=== PATIENT | male | born 1970 | race Caucasian/White ===

== ENCOUNTER 2025-07-08 05:52 | Emergency (ER) | payer BC, SELFPAY ==
[2025-07-08] VITALS (11 sets, daily range): BP systolic 115–133; BP diastolic 66–80; PULSE 49–70; RESP 12–19; TEMP 36.6; O2SAT 95–98; BMI 34.2
--- NOTE | 2025-07-08 05:57 | XR_ITS ---
PROCEDURE INFORMATION: Exam: XR Chest Exam date and time: 07/08/2025 6:15 AM Age: 55 years old Clinical indication: Pain; Chest pressure; Additional info: Cp TECHNIQUE: Imaging protocol: Radiologic exam of the chest. Views: 1 view. COMPARISON: No relevant prior studies available. FINDINGS: Lungs: Opacity in the medial right base may represent atelectasis or pneumonia. Pleural spaces: Unremarkable. No pleural effusion. No pneumothorax. Heart/Mediastinum: Unremarkable. No cardiomegaly. Bones/joints: Unremarkable. IMPRESSION: Opacity in the medial right base may represent atelectasis or pneumonia.
--- NOTE | 2025-07-08 05:57 | ECG_ITS ---
APPROVED REPORT Exam: Resting ECG HR:54 bpm ECG Measurements Heart Rate 54 AXES MO 170 P 59 QRSd 96 QRS 34 QT 390 T 18 QTc 376 Conclusion SINUS BRADYCARDIA LOW QRS VOLTAGE IN PRECORDIAL LEADS [QRS DEFLECTION < 1.0 mV IN CHEST LEADS] BORDERLINE ECG UNCONFIRMED REPORT Electronically signed by : CON CHRISTOPHER, 07/10/2025 06:25:41
--- NOTE | 2025-07-08 06:04 | ED_ITS ---
Discharge Plan Disposition Patient Disposition: Home, Self-Care Prescriptions Prescriptions: New doxycycline hyclate 100 mg capsule 100 mg PO BID 7 Days Qty: 14 0RF Referrals Follow up/Referrals: Alec Macias [Primary Care Provider, Medical] - See instructions Activity Restrictions/Add. Instructions Additional Instructions/Restrictions: Your chest x-ray shows an area in the right lung that could represent pneumonia. I am prescribing an antibiotic. Take this as prescribed. You can take Tylenol and ibuprofen to help with your chest pain, which is likely from pulled muscle. If you develop any new or worsening symptoms, or if you become concerned for your health for any reason, return to the emergency department for evaluation Clinical Impressions Clinical Impression: Pneumonia, Chest pain Print Language Print Language: Frisian Discharge ED Provider: Ismael Yeboah General Adult HPI <Ismael Yeboah MD - Last Filed: 07/08/25 06:58> General Chief complaint: Chest Pain Stated complaint: Chest Pain Earlier Time Seen by Provider: 07/08/25 05:55 History of Present Illness HPI narrative: 55-year-old male without significant past medical history presents for chest pain. He reports that he had a little bit of soreness that he thought was from playing with his grandkids when he went to bed but he woke up with more central severe pain. Denies any significant cardiac history. No history of stroke or PE. Currently he is having no chest pain. Related Data Previous Rx's ?Medication ?Instructions ?Recorded doxycycline hyclate 100 mg capsule 100 mg PO BID 7 day s #14 caps 07/08/25 Allergies Allergy/AdvReac Type Severity Reaction Status Date / Time No Known Allergies Allergy Verified 07/08/25 06:05 [facility] <Ismael Yeboah MD - Last Filed: 07/08/25 06:58> [facility] Disclaimer: The information contained in this section may have been updated after the patient was seen, as this information can be updated by other users. Medical History (Updated 07/08/25 @ 07:44 by Joshua Montoya MD) Hyperlipidemia HTN (hypertension) Social History Smoking Status: Never smoker alcohol intake: never current occupational status: employed Travel in the last 8 weeks?: None Have you lived/traveled outside [place] in past 30 days?: No Contact w/someone who lives/traveled outside [place] past 30 days?: No Exposure to someone with infectious disease in past 14 days?: No Do you have a fever (greater than 100.4 F or 38 C)?: No Have you tested positive for COVID-19?: No Exposed to someone with COVID-19 in past 14 days?: No Do you have a sore throat?: No Do you have a cough?: No Do you have any weakness?: No Do you have any diarrhea?: No Are you experiencing any unusual bleeding?: No Do you have any muscle aches/pain?: No Do you have any abdominal pain?: No Are you experiencing loss of taste or smell?: No <Ismael Yeboah MD - Last Filed: 07/08/25 06:58> ROS Obtained: Yes All systems reviewed & no additional complaints except as documented Physical Exam <Ismael Yeboah MD - Last Filed: 07/08/25 06:58> General General appearance: alert and in no apparent distress Head Head exam: atraumatic and normocephalic Eye Eye exam: Present normal appearance, PERRL and EOMI ENT ENT exam: Present normal oropharynx and normal external ear exam Neck Neck exam: Present normal inspection and full ROM Chest Chest inspection: Present normal inspection and symmetric chest wall rise; Absent tenderness Respiratory Respiratory exam: Present normal lung sounds bilaterally; Absent respiratory distress Cardiovascular Cardiovascular exam: Present regular rate and normal rhythm Abdominal Exam Abdominal exam: Present soft; Absent distention, tenderness or guarding Extremities Exam Extremities exam: Present normal inspection; Absent edema or joint swelling Back Exam Back exam: Present normal inspection; Absent tenderness Neurological Exam Neurological exam: Present alert and oriented X3; Absent motor sensory deficit Psychiatric Psychiatric exam: Present normal affect and normal mood Skin Skin exam: Present warm, dry and normal color Lymphatic Lymphatic Findings: no adenopathy Medical Decision Making <Ismael Yeboah MD - Last Filed: 07/08/25 06:58> Medical Records Medical records reviewed: Yes I reviewed the patient's medical records. Screening: Per USPSTF and CDC recommendations, given the prevalence of disease in our region, it is our hospital?s policy to screen for HIV and viral Hepatitis for all patients aged 18 and over and those with ongoing risk factors. Stalin Inquiry Pt receiving controlled substance: No Stalin was queried for this patient: No Vital Signs: 07/08/25 06:05 07/08/25 06:11 07/08/25 06:31 Temperature 97.8 F Temperature Source Oral Pulse Rate 70 49 L Pulse Rate [Left] 70 Respiratory Rate 16 15 Blood Pressure 124/76 Blood Pressure [Right Arm] 133/75 Blood Pressure Mean 96 Blood Pressure Mean [Right Arm] 94 Blood Pressure Source [Right Arm] Automatic Cuff Blood Pressure Position [Right Arm] Sitting 02 Sat by Pulse Oximetry 97 98 Oxygen Delivery Method Room Air 07/08/25 07:00 07/08/25 07:30 07/08/25 08:00 Temperature Temperature Source Pulse Rate 49 L 50 L 49 L Pulse Rate [Left] Respiratory Rate 16 12 18 Blood Pressure 123/76 117/66 126/76 Blood Pressure [Right Arm] Blood Pressure Mean Blood Pressure Mean [Right Arm] Blood Pressure Source [Right Arm] Blood Pressure Position [Right Arm] 02 Sat by Pulse Oximetry 95 95 97 Oxygen Delivery Method Room Air Room Air Room Air 07/08/25 08:31 07/08/25 09:00 07/08/25 09:30 Temperature Temperature Source Pulse Rate 54 L 52 L 55 L Pulse Rate [Left] Respiratory Rate 13 17 19 Blood Pressure 119/78 115/79 127/80 Blood Pressure [Right Arm] Blood Pressure Mean Blood Pressure Mean [Right Arm] Blood Pressure Source [Right Arm] Blood Pressure Position [Right Arm] 02 Sat by Pulse Oximetry 98 96 97 Oxygen Delivery Method Room Air Room Air Room Air 07/08/25 10:01 Temperature Temperature Source Pulse Rate 52 L Pulse Rate [Left] Respiratory Rate 15 Blood Pressure 117/76 Blood Pressure [Right Arm] Blood Pressure Mean Blood Pressure Mean [Right Arm] Blood Pressure Source [Right Arm] Blood Pressure Position [Right Arm] 02 Sat by Pulse Oximetry 97 Oxygen Delivery Method Room Air Lab Data Lab results reviewed: Yes I reviewed the patient's lab results. Lab Results 07/08/25 06:16: WBC 8.9, RBC 4.70, Hgb 14.3, Hct 42.1, MCV 89.6, MCH 30.4, MCHC 34.0, RDW 12.5, Plt Count 243, MPV 10.6 H, Neut % (Auto) 52.2, Lymph % (Auto) 31.4, Anson % (Auto) 12.9 H, Eos % (Auto) 2.9, Baso % (Auto) 0.4, Neut # (Auto) 4.7, Lymph # (Auto) 2.8, Anson # (Auto) 1.2 H, Eos # (Auto) 0.3, Baso # (Auto) 0.0, Sodium 137, Potassium 4.6, Chloride 102, Carbon Dioxide 29, Anion Gap 10.6, BUN 17, Creatinine 1.30 H, Estimated Creat Clear 105, Estimated GFR 57 L, Est GFR ( Amer) 69, Glucose 99, Calcium 9.0, Total Bilirubin 1.1, AST 60 H, ALT 38, Alkaline Phosphatase 66, Troponin I 0.02, Total Protein 8.1, Albumin 4.4, Globulin 3.7 H, Albumin/Globulin Ratio 1.2, HCV Ab LUDMILA w/Rflx PCR Qn Negative, HIV Ag/Ab Combo Qual Negative 07/08/25 08:54: Troponin I < 0.01 07/08/25 06:16 07/08/25 06:16 Orders (Tests/Meds): ED MEDICATIONS Discontinued Medications Generic Name Dose Route Start Last Admin Trade Name Freq PRN Reason Stop Dose Admin Acetaminophen 1,000 mg 07/08/25 05:57 07/08/25 06:17 Acetaminophen 500mg Tab PO 07/08/25 05:58 1,000 mg ONCE ONE Administration Aspirin 324 mg 07/08/25 05:57 07/08/25 06:17 Aspirin 81mg Chewable Tablet PO 07/08/25 05:58 324 mg ONCE ONE Administration ORDERS Category Date Time Status CXR --portable [XR chest portable] Stat Exams 07/08/25 05:57 Completed CBC w/Auto Diff [Complete Blood Count Auto Diff] Stat Lab 07/08/25 06:16 Completed CMP [Comprehensive Metabolic Panel] Stat Lab 07/08/25 06:16 Completed HIV Combo Stat Lab 07/08/25 06:16 Completed Hepatitis C Ab Qual. W/ RFX Stat Lab 07/08/25 06:16 Completed Troponin I Q3H Lab 07/08/25 06:16 Completed Troponin I Q3H Lab 07/08/25 08:54 Completed ECG Data Tracing #1: I reviewed this ECG and interpreted as documented below: ECG initial impression date: 07/08/25 ECG initial impression time: 05:57 ECG normal with no acute: arrhythmias, ischemia, conduction abnormalities, chamber hypertrophy Normal Sinus Rhythm: Yes HEART Score History (anamnesis): Slightly suspicious ECG: Normal Age: 45-65 years Risk factors: 1-2 risk factors Troponin: </= normal limit HEART Score: 2 Medical Decision Narrative: 55-year-old male without significant past medical history presents for central chest pain that he awoke with, has been resolved prior to arrival. History was obtained via interactive discussion with patient, family, chart review. On arrival, patient is [afebrile, hemodynamically stable, satting appropriately, alert, oriented x4, GCS 15], moving all extremities spontaneously. Full physical exam performed and significant for no significant physical exam abnormality Differential includes but is not limited to ACS, musculoskeletal chest pain, GERD. Patient was given aspirin Tylenol for symptomatic management and correction of underlying abnormalities. Workup initiated including CBC CMP troponin EKG chest x-ray. On re-evaluation, patient [remains afebrile, HD stable.] Laboratory workup independently interpreted by me and significant for no significant laboratory derangement, negative initial troponin. Imaging independently interpreted by me and significant for clear lungs bilaterally without focal opacity. See radiology read for full review of final results. Repeat troponin was considered, but deemed unnecessary due to brief episode of pain, pain resolved prior to arrival. Care handed off to oncoming physician pending troponin. <Joshua Montoya MD - Last Filed: 07/08/25 10:22> Vital Signs: 07/08/25 06:05 07/08/25 06:11 07/08/25 06:31 Temperature 97.8 F Temperature Source Oral Pulse Rate 70 49 L Pulse Rate [Left] 70 Respiratory Rate 16 15 Blood Pressure 124/76 Blood Pressure [Right Arm] 133/75 Blood Pressure Mean 96 Blood Pressure Mean [Right Arm] 94 Blood Pressure Source [Right Arm] Automatic Cuff Blood Pressure Position [Right Arm] Sitting 02 Sat by Pulse Oximetry 97 98 Oxygen Delivery Method Room Air 07/08/25 07:00 07/08/25 07:30 07/08/25 08:00 Temperature Temperature Source Pulse Rate 49 L 50 L 49 L Pulse Rate [Left] Respiratory Rate 16 12 18 Blood Pressure 123/76 117/66 126/76 Blood Pressure [Right Arm] Blood Pressure Mean Blood Pressure Mean [Right Arm] Blood Pressure Source [Right Arm] Blood Pressure Position [Right Arm] 02 Sat by Pulse Oximetry 95 95 97 Oxygen Delivery Method Room Air Room Air Room Air 07/08/25 08:31 07/08/25 09:00 07/08/25 09:30 Temperature Temperature Source Pulse Rate 54 L 52 L 55 L Pulse Rate [Left] Respiratory Rate 13 17 19 Blood Pressure 119/78 115/79 127/80 Blood Pressure [Right Arm] Blood Pressure Mean Blood Pressure Mean [Right Arm] Blood Pressure Source [Right Arm] Blood Pressure Position [Right Arm] 02 Sat by Pulse Oximetry 98 96 97 Oxygen Delivery Method Room Air Room Air Room Air 07/08/25 10:01 Temperature Temperature Source Pulse Rate 52 L Pulse Rate [Left] Respiratory Rate 15 Blood Pressure 117/76 Blood Pressure [Right Arm] Blood Pressure Mean Blood Pressure Mean [Right Arm] Blood Pressure Source [Right Arm] Blood Pressure Position [Right Arm] 02 Sat by Pulse Oximetry 97 Oxygen Delivery Method Room Air Lab Data Lab Results 07/08/25 06:16: WBC 8.9, RBC 4.70, Hgb 14.3, Hct 42.1, MCV 89.6, MCH 30.4, MCHC 34.0, RDW 12.5, Plt Count 243, MPV 10.6 H, Neut % (Auto) 52.2, Lymph % (Auto) 31.4, Anson % (Auto) 12.9 H, Eos % (Auto) 2.9, Baso % (Auto) 0.4, Neut # (Auto) 4.7, Lymph # (Auto) 2.8, Anson # (Auto) 1.2 H, Eos # (Auto) 0.3, Baso # (Auto) 0.0, Sodium 137, Potassium 4.6, Chloride 102, Carbon Dioxide 29, Anion Gap 10.6, BUN 17, Creatinine 1.30 H, Estimated Creat Clear 105, Estimated GFR 57 L, Est GFR ( Amer) 69, Glucose 99, Calcium 9.0, Total Bilirubin 1.1, AST 60 H, ALT 38, Alkaline Phosphatase 66, Troponin I 0.02, Total Protein 8.1, Albumin 4.4, Globulin 3.7 H, Albumin/Globulin Ratio 1.2, HCV Ab LUDMILA w/Rflx PCR Qn Negative, HIV Ag/Ab Combo Qual Negative 07/08/25 08:54: Troponin I < 0.01 Orders (Tests/Meds): ED MEDICATIONS Discontinued Medications Generic Name Dose Route Start Last Admin Trade Name Freq PRN Reason Stop Dose Admin Acetaminophen 1,000 mg 07/08/25 05:57 07/08/25 06:17 Acetaminophen 500mg Tab PO 07/08/25 05:58 1,000 mg ONCE ONE Administration Aspirin 324 mg 07/08/25 05:57 07/08/25 06:17 Aspirin 81mg Chewable Tablet PO 07/08/25 05:58 324 mg ONCE ONE Administration ORDERS Category Date Time Status CXR --portable [XR chest portable] Stat Exams 07/08/25 05:57 Completed CBC w/Auto Diff [Complete Blood Count Auto Diff] Stat Lab 07/08/25 06:16 Completed CMP [Comprehensive Metabolic Panel] Stat Lab 07/08/25 06:16 Completed HIV Combo Stat Lab 07/08/25 06:16 Completed Hepatitis C Ab Qual. W/ RFX Stat Lab 07/08/25 06:16 Completed Troponin I Q3H Lab 07/08/25 06:16 Completed Troponin I Q3H Lab 07/08/25 08:54 Completed HEART Score HEART Score: 2 Medical Decision Narrative: 55-year-old male without significant past medical history presents for central chest pain that he awoke with, has been resolved prior to arrival. History was obtained via interactive discussion with patient, family, chart review. On arrival, patient is [afebrile, hemodynamically stable, satting appropriately, alert, oriented x4, GCS 15], moving all extremities spontaneously. Full physical exam performed and significant for no significant physical exam abnormality Differential includes but is not limited to ACS, musculoskeletal chest pain, GERD. Patient was given aspirin Tylenol for symptomatic management and correction of underlying abnormalities. Workup initiated including CBC CMP troponin EKG chest x-ray. On re-evaluation, patient [remains afebrile, HD stable.] Laboratory workup independently interpreted by me and significant for no significant laboratory derangement, negative initial troponin. Imaging independently interpreted by me and significant for clear lungs bilaterally without focal opacity. See radiology read for full review of final results. Repeat troponin was considered, but deemed unnecessary due to brief episode of pain, pain resolved prior to arrival. Care handed off to oncoming physician pending troponin. Joshua Montoya MD At the time my assumption of care, plan was to follow-up troponin Ultimately, patient's workup showed initial troponin of 0.02. Will obtain repeat troponin. Chest x-ray was interpreted by me personally. There is possible area of atelectasis versus consolidation in the right lower lobe that could represent pneumonia. Repeat troponin is negative at less than 0.01. Patient has not had recurrence of his symptoms while here in the emergency department. Will prescribe doxycycline 100 mg twice daily for possible pneumonia. I did encourage patient to follow with his primary care physician and return to the emergency department for any worsening or concerning symptoms. All questions were answered. He demonstrated understanding and was in agreement with this plan. He was then discharged from the emergency department in stable condition. Procedures <Ismael Yeboah MD - Last Filed: 07/08/25 06:58> Risk/Benefits of Procedure(s) Were Explained: Yes Critical Care <Ismael Yeboah MD - Last Filed: 07/08/25 06:58> Critical Care Time Critical Care Time: No
--- OUTSIDE RECORDS SUMMARY | 2025-07-08 06:16 | XMS_ITS | Data Portability ---
Author Organization [facility] JACKELINE Silva TAFT CLOSED Address [address] [place] [address] Care Team Providers Care Research Animal Facility Supervisor Name Role Phone DAMON ELIZABET Primary Care Provider [phone] Assessment No assessment recorded. Plan of Treatment Reminders Order Date Submit Date Provider Last Modified By Organization Details Last Modified Time Details Appointments None recorded. Lab urinalysis , dipstick, auto 2019 020 [facility], [address], [address], [place], [address], 0 19:53:33 urinalysis , dipstick, auto 2018 019 [facility], [address], [address], [place], [address], 9 14:42:28 Referral None recorded. Procedures None recorded. Surgeries None recorded. Imaging None recorded. Medication Orders sildenafil (pulmonary hypertensi on) 20 mg tablet 2018 019 INTERFACE [facility] [address] [place], [address], 9 14:42:36 Patient TargetsNo targets recorded. Patient Instructions Encounter Date Encounter Id Patient Instructions Last Modified By Organization Details Last Modified Time 07/20/2019 [id number] healthy together [facility] Not availabl e 07/20/2019 14:42:28 At this point th e patient likely has a variant of Peyronie's disease. Since it is not worsening he does not have pain and is able to have intercourse I do not recommend any invasive therapy. I have recommended use of vitamin E to see if this will reverse some of the defect. Plan for sildenafil for treatment of erectile dysfunction. [email or web address] Not available 07/23/2019 20:52:07 Reason for Referral None Reported. Results Created Date Observation Date Name Description Value Unit Range Abnormal Flag Note LastModifiedBy Organization Detail LastModifiedTime 02/02/20 20 02/02/2020 urina lysis , dipst ick, auto Unknown Analyte Yellow Not Available [facility] [address], [place], [address], 02/02/2020 12:18:24 02/02/20 20 02/02/2020 urina lysis , dipst ick, auto Unknown Analyte Clear Not Available [facility] [address], [place], [address], 02/02/2020 12:18:24 02/02/20 20 02/02/2020 urina lysis , dipst ick, auto Unknown Analyte 1.020 Not Available [facility] [address], [place], [address], 02/02/2020 12:18:24 02/02/20 20 02/02/2020 urina lysis , dipst ick, auto Unknown Analyte 1.003 - 1.035 Not Available [facility] [address] [place] [address] [address], [place], [address], 02/02/2020 12:18:24 02/02/20 20 02/02/2020 urina lysis , dipst ick, auto Unknown Analyte 6.0 Not Available [facility] [address], [address], 02/02/2020 12:18:24 02/02/20 20 02/02/2020 urina lysis , dipst ick, auto Unknown Analyte 5.0 - 8.0 Not Available [facility] [address], [place], [address], 02/02/2020 12:18:24 02/02/20 20 02/02/2020 urina lysis , dipst ick, auto Unknown Analyte Negati ve Not Available [facility] [address] [facility] [address], [place], [address], 02/02/2020 12:18:24 02/02/20 20 02/02/2020 urina lysis , dipst ick, auto Unknown Analyte Negati ve Not Available [facility] [address] [facility] [address], [place], [address], 02/02/2020 12:18:24 02/02/20 20 02/02/2020 urina lysis , dipst ick, auto Unknown Analyte Negati ve Not Available [facility] [address] [place] [address] [address], [place], [address], 02/02/2020 12:18:24 02/02/20 20 02/02/2020 urina lysis , dipst ick, auto Unknown Analyte Negati ve Not Available [facility] [address] [facility] [address], [place], [address], 02/02/2020 12:18:24 02/02/20 20 02/02/2020 urina lysis , dipst ick, auto Unknown Analyte Negtiv e Not Available [facility] [address] [facility] [address], [place], [address], 02/02/2020 12:18:24 02/02/20 20 02/02/2020 urina lysis , dipst ick, auto Unknown Analyte Negati ve - Trace Not Available [facility] [address], [place], [address], 02/02/2020 12:18:24 02/02/20 20 02/02/2020 urina lysis , dipst ick, auto Unknown Analyte Normal Not Available [facility] [address], [place], [address], 02/02/2020 12:18:24 02/02/20 20 02/02/2020 urina lysis , dipst ick, auto Unknown Analyte Normal Not Available [facility] [address], [place], [address], 02/02/2020 12:18:24 02/02/20 20 02/02/2020 urina lysis , dipst ick, auto Unknown Analyte Negati ve Not Available [facility] [address], [place], [address], 02/02/2020 12:18:24 02/02/20 20 02/02/2020 urina lysis , dipst ick, auto Unknown Analyte Negati ve Not Available [facility] [address], [place], [address], 02/02/2020 12:18:24 02/02/20 20 02/02/2020 urina lysis , dipst ick, auto Unknown Analyte Normal Not Available [facility] [address], [place], [address], 02/02/2020 12:18:24 02/02/20 20 02/02/2020 urina lysis , dipst ick, auto Unknown Analyte Normal - 1mg/dl Not Available [facility] [address], [place], [address], 02/02/2020 12:18:24 02/02/20 20 02/02/2020 urina lysis , dipst ick, auto Unknown Analyte Negati ve Not Available [facility] [address], [place], [address], 02/02/2020 12:18:24 02/02/20 20 02/02/2020 urina lysis , dipst ick, auto Unknown Analyte Negati ve Not Available [facility] [address], [place], [address], 02/02/2020 12:18:24 02/02/20 20 02/02/2020 urina lysis , dipst ick, auto Unknown Analyte Negati ve Not Available [facility] [address], [place], [address], 02/02/2020 12:18:24 02/02/20 20 02/02/2020 urina lysis , dipst ick, auto Unknown Analyte Negati ve Not Available [facility] [address], [place], [address], 02/02/2020 12:18:24 02/02/20 20 02/02/2020 urina lysis , dipst ick, auto Unknown Analyte Clean Catch Not Available [facility] [address], [place], [address], 02/02/2020 12:18:24 02/02/20 20 02/02/2020 urina lysis , dipst ick, auto Unknown Analyte Automa jennifer Not Available [facility] [address], [place], [address], 02/02/2020 12:18:24 07/20/20 19 07/20/2019 urina lysis , dipst ick, auto Unknown Analyte Yellow Not Available [facility] [address], [place], [address], 07/20/2019 14:33:32 07/20/20 19 07/20/2019 urina lysis , dipst ick, auto Unknown Analyte Clear Not Available [facility] [address], [place], [address], 07/20/2019 14:33:32 07/20/20 19 07/20/2019 urina lysis , dipst ick, auto Unknown Analyte 1.005 Not Available [facility] [address], [place], [address], 07/20/2019 14:33:32 07/20/20 19 07/20/2019 urina lysis , dipst ick, auto Unknown Analyte 1.003 - 1.035 Not Available [facility] [address], [place], [address], 07/20/2019 14:33:32 07/20/20 19 07/20/2019 urina lysis , dipst ick, auto Unknown Analyte 8.0 Not Available [facility] [address], [place], [address], 07/20/2019 14:33:32 07/20/2007/20/2019 urina lysis , dipst ick, auto Unknown Analyte 5.0 - 8.0 Not Available [facility] [address] [facility] [address], [place], [address], 07/20/2019 14:33:32 07/20/2007/20/2019 urina lysis , dipst ick, auto Unknown Analyte Negati ve Not Available [facility] [address], [place], [address], 07/20/2019 14:33:32 07/20/2007/20/2019 urina lysis , dipst ick, auto Unknown Analyte Negati ve Not Available [facility] [address], [place], [address], 07/20/2019 14:33:32 07/20/2007/20/2019 urina lysis , dipst ick, auto Unknown Analyte Negati ve Not Available [facility] [address], [place], [address], 07/20/2019 14:33:32 07/20/2007/20/2019 urina lysis , dipst ick, auto Unknown Analyte Negati ve Not Available [facility] [address], [place], [address], 07/20/2019 14:33:32 07/20/20 19 07/20/2019 urina lysis , dipst ick, auto Unknown Analyte Negtiv e Not Available [facility] [address], [place], [address], 07/20/2019 14:33:32 07/20/20 19 07/20/2019 urina lysis , dipst ick, auto Unknown Analyte Negati ve - Trace Not Available [facility] [address], [place], [address], 07/20/2019 14:33:32 07/20/20 19 07/20/2019 urina lysis , dipst ick, auto Unknown Analyte Normal Not Available [facility] [address], [place], [address], 07/20/2019 14:33:32 07/20/20 19 07/20/2019 urina lysis , dipst ick, auto Unknown Analyte Normal Not Available [facility] [address], [place], [address], 07/20/2019 14:33:32 07/20/20 19 07/20/2019 urina lysis , dipst ick, auto Unknown Analyte Negati ve Not Available [facility] [address], [place], [address], 07/20/2019 14:33:32 07/20/20 19 07/20/2019 urina lysis , dipst ick, auto Unknown Analyte Negati ve Not Available [facility] [address], [place], [address], 07/20/2019 14:33:32 07/20/20 19 07/20/2019 urina lysis , dipst ick, auto Unknown Analyte Normal Not Available [facility] [address], [place], [address], 07/20/2019 14:33:32 07/20/20 19 07/20/2019 urina lysis , dipst ick, auto Unknown Analyte Normal - 1mg/dl Not Available [facility] [address], [place], [address], 07/20/2019 14:33:32 07/20/2007/20/2019 urina lysis , dipst ick, auto Unknown Analyte Negati ve Not Available [facility] [address], [place], [address], 07/20/2019 14:33:32 07/20/20 19 07/20/2019 urina lysis , dipst ick, auto Unknown Analyte Negati ve Not Available [facility] [address], [place], [address], 07/20/2019 14:33:32 07/20/20 19 07/20/2019 urina lysis , dipst ick, auto Unknown Analyte Negati ve Not Available [facility] [address], [place], [address], 07/20/2019 14:33:32 07/20/20 19 07/20/2019 urina lysis , dipst ick, auto Unknown Analyte Negati ve Not Available [facility] [address], [place], [address], 07/20/2019 14:33:32 07/20/20 19 07/20/2019 urina lysis , dipst ick, auto Unknown Analyte Clean Catch Not Available [facility] [address], [place], [address], 07/20/2019 14:33:32 07/20/20 19 07/20/2019 urina lysis , dipst ick, auto Unknown Analyte Automa jennifer Not Available [facility] [address], [place], [address], 07/20/2019 14:33:32 Result Notes None recorded. 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 Procedures Surgical History Date Name Laterality Status Provider Name and Address Organization Details Recorded Time Hernia Repair completed Murelene Flako [facility] 07/20/2019 14:32:06 Hernia Repair completed Murelene Flako [facility] 07/20/2019 14:32:14 Imaging Results None recorded. Procedure Notes None recorded. Medical Equipment None Reported. Allergies No known drug allergies Medications Name Sig Start Date Stop Date Status Note LastModified by Organization Details LastModified Time promethazin e-DM 6.25 mg-15 mg/5 mL oral syrup 07/20 completed Not Available Not Available Not Available atorvastati n 20 mg tablet active Not Available Not Available Not Available prednisone 20 mg tablet 07/20 completed Not Available Not Available Not Available hydrochloro thiazide 25 mg tablet active Not Available Not Available No t Available polyethylen e glycol 3350 17 gram/dose oral powder 07/20 completed Not Available Not Available Not Available levofloxaci n 500 mg tablet 07/20 completed Not Available Not Available Not Available cefdinir 300 mg capsule 07/20 completed Not Available Not Available Not Available sildenafil (pulmonary hypertensio n) 20 mg tablet TAKE 2 TABLETS BY MOUTH NEEDED DIRECTED 2020 active Not Available Not Available Not Avai lable Vitals Date Recorded Body height Body mass index (BMI) Body weight Provider Name and Address Organization Details Last Updated DateTime 02/02/2020 182.88 cm 33.9 kg/m2 565263.09 g Deseriee Madison [facility] 02/02/2020 12:17:52 Date Recorded Body height Body mass index (BMI) Body weight Heart rate Systolic And Diastolic Provider Name and Address Organization Details Last Updated DateTime 07/20/2019 182.88 cm 33.9 kg/m2 601035.0 9 g 66 /min 131/85 mm[Hg] Bessie Arriola [facility] 07/20/2019 14:30:26 Social History Question Answer Notes LastModified by Paddle8 Details LastModified Time Tobacco Smoking Status Never Smoker Bessie Arriola [facility] 07/20/2019 14:31:31 How Much Tobacco Do You Chew? None Information not available 07/20/2019 Marital Status [facility] Informatio n not available 07/20/2019 What Was The Date Of Your Most Recent Tobacco Screening? 07/20/2019 Information not available 07/20/2019 Sex: Unknown Functional Status Question Answer Note LastModified by Paddle8 Details LastModified Time What is your level of alcohol consumption? Occasional Information not available 07/20/2019 Do you or have you ever used e-cigarettes or vape? Never used electronic cigarettes Information not available 07/20/2019 Mental Status None recorded. Family History Relationship Description Onset Age of this Age Resolved Age Notes LastModified by Organization Details LastModified Time Unspecified Relation Family history of malignant neoplasm Not available 2018 14:31:14 Unspecified Relation Kidney stone Not available 03/2019 14:31:19 Medical History Condition Response Hernia Y High Cholesterol Y Hypertension Y Past Encounters Encounter ID Performer Location Encounter Start Date Encounter Closed Date Diagnosis/Indication Diagnosis SNOMED-CT Code Diagnosis ICD10 Code Diagnosis IMO Codes Diagnosis Note [id number] PAULINA PICKERING JR, MD [facility] [address] [place] [address] 07/20/2019 13:48:19 07/20/2019 14:39:11 Induration penis plastica 8066887 N48.6 Primary er ectile dysfunction 812059993 N52.9 [id number] PAULINA PICKERING JR, MD [facility] [address] [place] [address] 02/02/2020 10:58:10 02/02/2020 11:19:46 Induration penis plastica 2000001 N48.6 Primary er ectile dysfunction 769914534 N52.9 Health Concerns Section Related Observation LastModified by Organization Detai ls LastModified Time None Recorded Concern Status LastModified by Organization Details LastModified Time None Recorded Advance Directives Directive None Recorded Payers Insurance Date Sequence Insurance Name Policy Number Policy Nowak Covered Member ID Nowak Member ID Guarantor Name 02/06/2020 1 [employer] (POS) Joce Shell Hernandez [id number] Joce Hernandez Notes Date Note Type Note Provider Name and Address Organization Details Recorded Time 07/20/2019 text/html Patient is in today for evaluation of abnormal appearing erection. He is a pleasant 49-year-old gentleman who is noticed over the past 10-12 months KUB in appearance to one side of his erection. He does not have any curvature with erection. He is able to have intercourse. This area has been stable. He denies pain with erection. He has had relative erectile dysfunction over the last few years and occasionally uses sildenafil. His erection is not as firm as it used to be over the past few years. No ejaculatory dysfunction. No lower urinary tract symptoms. PAULINA PICKERING JR, MD [address] [place], [address], [facility] 07/23/2019 20:52:25 02/02/2020 text/html Patient is in today for follow-up of erectile dysfunction and slight penile curvature with erection. He has been using vitamin E and sildenafil with success. He feels like his curve is slightly less and sildenafil definitely helps the rigidity of his erections. No complaints today. PAULINA PICKERING JR, MD [address] [place], [address], [facility] 02/05/2020 19:53:52
--- OUTSIDE RECORDS SUMMARY | 2025-07-08 06:16 | XMS_ITS | Clinical Summary ---
Author Organization [facility] Address [address] [place] [address] Care Team Providers Care Refrigeration Insulator Name Role Phone Alec Macias MD Primary Care Provider [phone] Allergies No known active allergies Medications lisinopril-hydro chlorothiazide (PRINZIDE,ZESTOR ETIC) 20-25 MG per tablet Take 1 tablet by mouth Daily. 03/28/2023 Active metoprolol tartrate (LOPRESSOR) 50 MG tablet Take 1 tablet by mouth Daily. 03/28/2023 Active montelukast (SINGULAIR) 10 MG tablet Take 1 tablet by mouth Daily. 03/15/2023 Active atorvastatin (LIPITOR) 20 MG tablet Take 1 tablet by mouth Daily. Active Active Problems Problem Noted Date Diagnosed Date KENNY (obstructive sleep apnea) 05/21/2023 Assessment & Plan (05/21/2023 2:48 PM EDT): Baseline AHI is 10. This is mild sleep apnea. He is on CPAP therapy. Download is reviewed with good control and good compliance. He is benefiting from PAP therapy and we plan to continue PAP therapy. Prescription for CPAP supplies to the DME of his choice. Follow-up in the sleep clinic in 1 year or sooner for any KENNY or PAP concerns. Family History Medical History Relation Name Comments Hypertension Father Hypertension Mother Relation Name Status Comments Father Alive Mother Alive Social History Tobacco Use Types Packs/Day Years Used Date Smoking Tobacco: Never Passive Smoke Exposure: Never Smokeless Tobacco: Never Alcohol Use Standard Drinks/Week Comments Not Currently 0 (1 standard drink = 0.6 oz pur e alcohol) Abuse Screen Answer Date Recorded Unsafe at Home or Work/School Not on file Feels Threatened by Someone? Not on file 08/2023 Does Anyone Keep You from Co ntacting Others or Doint Things Outside the Home? Not on file 06/24/2023 Physical Sign of Abuse Present Not on file 1 Housing Stability Answer Date Recorded Current Living Arrangements Not on file 06/13 Potentially Unsafe Housing Conditions Not on emir e 06/24/2023 Family and Community Support Answer Bharath e Recorded Help with Day-to-Day Activities Not on file 06/24/2023 Lonely or Isolated Not on file 06/24/2023 Employment Answer Date Recorded Do you want help finding or keeping work or a emilia b? Not on file 06/24/2023 Disabilities Answer Date Recorded Concentrating, Remembering, or Making Decisions Difficulty Not on file 06/24/2023 Doing Errands Independently Difficulty Not on fi le 06/24/2023 Education Answer Date Recorded Help with school or training? Not on file Preferred Language Not on file 06/24/2023 Sex and Gender Information Value Date Recorded Sex Assigned at Not on file Legal Sex Male 12:36 PM EST Gender Identity Not on file Sexual Orientation Not on file Last Filed Vital Signs Vital Sign Reading Time Taken Comments Blood Pressure 122/76 05/21/2023 1:34 PM EDT Pulse 70 05/21/2023 1:34 PM EDT Temperature - - Respiratory Rate - - Oxygen Saturation 96% 05/21/2023 1:34 PM EDT Inhaled Oxygen Concentration - - Weight 122 kg (268 lb) 05/21/2023 1:34 PM EDT Height 182.9 cm (6') 05/21/2023 1:34 PM EDT Body Mass Index 36.35 05/21/2023 1:34 PM EDT Plan of Treatment Health Maintenance Due Date Last Done Comments TDAP/TD VACCINES (1 - Tdap) 1987 COLOGUARD 2013 COLON CANCER SCREENING 5 YEA R SIGMOIDOSCOPY 2013 COLONOSCOPY [address] SCREENING 2013 [address] COLONOGRAPHY 2013 FECAL OCCULT BLOOD TEST 2013 FIT Testing (1 year) 2013 Pneumococcal Vaccine 50+ (1 of 1 - PCV) 2018 ZOSTER VACCINE (1 of 2) 2018 ANNUAL PHYSICAL 05/21/2023 HEPATITIS C SCREENING 05/21/2023 INFLUENZA VACCINE 04/13/2025 06/23/2023, , 07/08/2021 Insurance Care Teams Refrigeration Insulator Relationship Specialty Start Date End Date Alec Macias MD [address] [place] [address] [place] [address] PCP - General Family Medicine 05/21/23
[2025-07-08] MEDS: ACETAMINOPHEN 500MG TAB 1000 MG PO (06:17)
[2025-07-08] MEDS: ASPIRIN 81MG CHEWABLE TABLET 324 MG PO (06:17)
[2025-07-08 06:41] LABS: Hematocrit 42.1 % (42.0-52.0); Hemoglobin 14.3 g/dL (14.1-18.0); Immature Granulocytes % 0.2 %; Mean Corpuscular HGB Conc 34.0 g/dL (31.8-35.4); Mean Corpuscular Hemoglobin 30.4 pg (27.0-31.2); Mean Corpuscular Volume 89.6 fl (80-94); Nucleated Red Blood Cells % 0 %; Platelet Count 243 K/mm3 (142-424); Red Blood Count 4.70 M/mm3 (4.60-6.20); Red Cell Distribution Width-SD 41.0 fL; White Blood Count 8.9 K/mm3 (4.8-10.8)
[2025-07-08 06:47] LABS: Albumin Level 4.4 g/dl (3.5-5.0); Chloride 102 mmol/L (98-107); Potassium 4.6 mmoL/L (3.5-5.1); Sodium 137 mmol/L (136-145)
[2025-07-08 06:49] LABS: Blood Urea Nitrogen 17 mg/dl (9-20); Creatinine Clearance Estimated 105 mL/min (50-200); Creatinine,Serum 1.30 mg/dl (0.66-1.25); Estimated Glomerular Filt Rate 57 ml/min (>60); GFR (African American) 69 ML/MIN (>60)
[2025-07-08 06:50] LABS: Alanine Aminotransferase 38 U/L (12-78); Albumin/Globulin Ratio 1.2 (1.1-1.8); Alkaline Phosphatase 66 U/L (38-126); Anion Gap 10.6 mEq/L (5-15); Aspartate Amino Transferase 60 U/L (17-59); Bilirubin,Total 1.1 mg/dl (0.2-1.3); Calcium 9.0 mg/dl (8.4-10.2); Carbon Dioxide 29 mmol/L (22.0-30.0); Globulin 3.7 g/dL (1.3-3.2); Glucose 99 mg/dl (74-100); Total Protein,Serum 8.1 g/dl (6.3-8.2)
[2025-07-08 07:01] LABS: Troponin I 0.02 ng/ml (0.00-0.034)
[2025-07-08 07:39] LABS: Hepatitis C Ab Qual. W/ RFX NEGATIVE (Negative)
--- NOTE | 2025-07-08 10:00 | PC.NURSE ---
this rn spoke to lab about time frame on second trop they report 5 mins
[2025-07-08 10:08] LABS: Troponin I < 0.01 ng/ml (0.00-0.034)
== END 2025-07-08 10:39 | disposition home or self-care (01) ==
PROVIDERS: Emergency Provider Emergency Medicine; PCP Family Medicine
DX: J18.9 Pneumonia, unspecified organism (principal); R07.9 Chest pain, unspecified; I10 Essential (primary) hypertension; E78.5 Hyperlipidemia, unspecified
CPT/HCPCS: 71045; 80053; 84484; 85025; 86803; 87389; 93005; 99284; 99285